=== PATIENT | female | born 1990 | race Asian ===

== ENCOUNTER 2018-07-29 08:36 | Emergency (ER) | payer BC ==
[~2018-07-29] VITALS: Ht 162.6 cm; Wt 63.0 kg
[2018-07-29 08:43] VITALS: BP 128/78; Ht 162.6 cm; Wt 63.0 kg
[2018-07-29 09:40] LABS: CARBON DIOXIDE 35.2 mmol/L (21-32); CHLORIDE SERUM 101 mmol/L (98-107); CREATININE SERUM 0.9 mg/dL (0.6-1.0); GFR1 > 60 mL/min; GLUCOSE SERUM 113 mg/dL (74-106); POTASSIUM SERUM 3.8 mmol/L (3.5-5.1); SODIUM SERUM 141 mmol/L (136-145)
[2018-07-29 09:42] LABS: BASOPHIL % 0.3 % (0-2); PLATELET COUNT 296 x10^3mcL (130-400); RED CELL DISTRIBUTION WIDTH 12.8 % (11.5-14.5)
[2018-07-29 09:45] LABS: ALBUMIN 4.2 g/dL (3.4-5.0); ALKALINE PHOSPHATASE 72 U/L (46-116); ALT/SGPT 37 U/L (14-59); AST/SGOT 14 U/L (15-37); BILIRUBIN TOTAL 0.7 mg/dL (0.20-1.00)
[2018-07-29 11:04] LABS: AMPHETAMINE QUAL UR NONE DETECTED (See below)
== END 2018-07-29 10:36 | disposition home or self-care (01) ==
LOC: ED 08:36
PROVIDERS: Emergency Medicine
DX: F29 Unspecified psychosis not due to a substance or known physiological condition (principal)
CPT/HCPCS: 36415; G0480